=== PATIENT | female | born 1990 | race American Indian/Alaskan Native ===

== ENCOUNTER 2018-12-21 13:55 | Outpatient (CLI) | payer MEDICAID ==
[2018-12-21 14:20] VITALS: BP 123/74
[2018-12-21] MEDS ORDERED: LACTATED RINGERS 500 ML IV ONE (16:35)
--- NOTE | 2018-12-21 17:39 | Ultrasound Report ---
ULTRASOUND BIOPHYSICAL PROFILE INDICATION: spotting. COMPARISON: None available. FINDINGS: breathing movement = 2 Gross body movement = 2 tone = 2 Qualitative amniotic fluid volume = 2 Total biophysical score = 8/8 Amniotic fluid index is 9.7 cm. Presentation is Cephalic. heart rate is 131 beats per minute. IMPRESSION: biophysical profile = 8/8 OBSTETRIC ULTRASOUND INDICATION: Vaginal spotting COMPARISON: No prior relevant imaging studies are available for comparison. TECHNIQUE: Transabdominal imaging was performed. FINDINGS: Single viable intrauterine is identified. lie: vertex. Heart rate: 131 bpm. stomach, kidneys, bladder, and umbilical cord are unremarkable. Additional structures are not well visualized due to lie. measurements are as follows: Biparietal diameter 8.1 cm, 32 weeks 4 days Head circumference 30.1 cm, 33 weeks 2 days Abdominal circumference 28.9 cm, 32 weeks 6 days Femur length 7.0 cm, 35 weeks 5 days Amniotic fluid index is 9.7cm, within normal limits. No placental abnormalities are seen. There is a grade 1 posterior placenta. Cervix appears closed measuring approximately 3 cm. CONCLUSION: Single viable intrauterine currently in vertex position.. Amniotic fluid index is within no rmal limits. No abnormalities are seen. Signer Name: Benja Merritt MD Signed: 12/21/2018 5:35 PM Workstation Name: [id number]
== END 2018-12-21 17:16 | disposition home or self-care (01) ==
LOC: TRG 13:55
PROVIDERS: ATTEND Obstetrics & Gynecology
DX: O47.03 False labor before 37 completed weeks of gestation, third trimester (principal); Z3A.36 36 weeks gestation of pregnancy
CPT/HCPCS: 59025; 76805; 76819